=== PATIENT | male | born 1945 | race Caucasian/White ===

== ENCOUNTER 2017-11-09 20:58 | Emergency (ER) | payer MEDICARE, OTHER, BC ==
[2017-11-09 21:38] LABS: BASO % 0.6 % (0.0-1.0); EOS # 0.3 10^3/uL (0.0-0.50); EOS % 4.8 % (0.0-3.0); HEMATOCRIT 42.2 % (42.0-52.0); HEMOGLOBIN 14.2 g/dl (13.5-17.5); IMMATURE GRANULOCYTE % 0.2 % (0-3.0); LYMPH # 1.7 10^3/uL (1.5-4.5); LYMPH % 26.9 % (24.0-44.0); MEAN CORPUSCULAR HEMOGLOBIN 31.3 pg (27.0-33.0); MEAN CORPUSCULAR HGB CONC 33.6 g/dl (32.0-36.5); MEAN CORPUSCULAR VOLUME 93.2 fl (80.0-96.0); MONO # 0.7 10^3/uL (0.0-0.8); MONO % 11.6 % (0.0-5.0); NEUTROPHILS # 3.5 10^3/uL (1.8-7.7); NEUTROPHILS % 55.9 % (36.0-66.0); PLATELET COUNT, AUTOMATED 183 10^3/uL (150-450); RED BLOOD COUNT 4.53 10^6/uL (4.30-6.10); RED CELL DISTRIBUTION WIDTH 12.7 % (11.5-14.5); WHITE BLOOD COUNT 6.3 10^3/uL (4.0-10.0)
[2017-11-09 22:04] LABS: INR 0.96; PARTIAL THROMBOPLASTIN TIME 25.8 SECONDS (25.4-37.6); PROTHROMBIN TIME 12.9 SECONDS (12.1-14.4)
[2017-11-09 22:15] LABS: ANION GAP 4 MEQ/L (8-16); BLOOD UREA NITROGEN 24 MG/DL (7-18); CALCIUM LEVEL 8.6 MG/DL (8.8-10.2); CARBON DIOXIDE LEVEL 31 MEQ/L (21-32); CHLORIDE LEVEL 106 MEQ/L (98-107); CPK CREATINE PHOSPHOKINASE 234 U/L (39-308); CREATININE FOR GFR 1.08 MG/DL (0.70-1.30); GLOMERULAR FILTRATION RATE > 60.0 (>42); GLUCOSE, FASTING 99 MG/DL (70-100); POTASSIUM SERUM 4.1 MEQ/L (3.5-5.1); SODIUM LEVEL 141 MEQ/L (136-145); TROPONIN I < 0.02 NG/ML (< 0.10)
[2017-11-09 22:16] LABS: CK-MB VALUE MASS 4.4 NG/ML (<3.6); MB/CK RELATIVE INDEX 1.88 (< OR =4)
[2017-11-09] MEDS: ASPIRIN 325 MG TAB PO (22:55)
[2017-11-09] MEDS: NS 500 ML IV (22:55)
[2017-11-10 00:08] LABS: CK-MB VALUE MASS 3.8 NG/ML (<3.6); CPK CREATINE PHOSPHOKINASE 198 U/L (39-308); MB/CK RELATIVE INDEX 1.91 (< OR =4); TROPONIN I < 0.02 NG/ML (< 0.10)
== END 2017-11-10 00:25 | disposition home or self-care (01) ==
LOC: M ED 11-10 00:25
DX: E86.0 Dehydration (principal); R07.89 Other chest pain; I10 Essential (primary) hypertension; E78.5 Hyperlipidemia, unspecified; Z79.899 Other long term (current) drug therapy; Z79.82 Long term (current) use of aspirin; Z87.891 Personal history of nicotine dependence
CPT/HCPCS: 71046

== ENCOUNTER 2020-09-25 18:26 | Emergency (ER) | payer MEDICARE ==
[~2020-09-25] VITALS: Ht 190.5 cm; Wt 88.7 kg
[~2020-09-25 18:26] MED LIST: ASPI81TA86 PO; HYDR-3490 PO; PRAV40TA2 PO; SILD1TAB8 PO
[2020-09-25] MEDS ORDERED: OMEP-218 PO (18:53)
[2020-09-25] MEDS ORDERED: D3 +TAB PO (18:53)
[2020-09-25] MEDS ORDERED: VITMTA PO (18:53)
[2020-09-25] MEDS ORDERED: OLME5TAB PO (18:53)
[2020-09-25] MEDS ORDERED: predniSONE 20 MG TAB PO ONE (22:25)
[2020-09-25] MEDS ORDERED: FLON1SPR NARES (22:25)
[2020-09-25] MEDS ORDERED: CLAR10CA3 PO (22:25)
[2020-09-25] MEDS ORDERED: PRED20TA PO (22:25)
[2020-09-25 22:45] VITALS: BP 160/92
== END 2020-09-25 22:47 | disposition home or self-care (01) ==
LOC: M ED 18:26
DX: H65.01 Acute serous otitis media, right ear (principal); H91.91 Unspecified hearing loss, right ear; I10 Essential (primary) hypertension
CPT/HCPCS: 99283; J7512